=== PATIENT | female | born 1990 | race Caucasian/White ===

== ENCOUNTER 2024-06-05 07:58 | Outpatient (CLI) | payer OTHER, SELFPAY ==
--- OUTSIDE RECORDS SUMMARY | 2024-06-05 08:00 | XMS_ITS | Clinical Summary ---
Author Organization [facility] Address [place], [place] [address] Care Team Providers Care Camera Technician Name Role Phone Talya Wu MD Unavailable Lisa Self Primary Care Provider [phone] Allergies Active Allergy Reactions Criticality Noted Date Comments Amoxicillin Rash 04/06/2023 Xoiruwcxhghvhafs-Nrygsunid-R m Other - Describe In Comment Field hyper Medications Medication Sig Dispensed Refills Start Date End Date Status MULTIVITAMIN TAB take 1 tablet by oral route once daily with food 0 04/18/2007 Active Active Problems Problem Noted Date Diagnosed Date Fatty liver 05/13/2024 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 HPV as cause of cervical cancer discussed with patient. Patient voices understanding. Encounters Date Type Department Care Team Description 05/25/2024 Lab Requisition [facility] [phone] Annie Mendes MD 05/11/2024 9:00 AM CDT Ancillary Procedure [facility] [address] [place] [address] 05/10/2024 Travel 04/28/2024 9:50 AM CDT Office Visit [facility] [address] [place] [address] Lisa Self PA Physical (Annual exam with pap-thinks last exam was in 2016); Fatigue (Had severe 'drop off' with fatigue for the last few weeks and struggling to stay awake during the day) 04/28/2024 Travel from Last 3 Months Immunizations Name Administration Dates Next Due COVID-19 vaccine (Deondre-J& J) PF, MDV 01/27/2021 DTaP 03/25/1996, 2,1991,07/13,1991 HIB HbOC (HibTITER) 05/12/1992, 1,1991,05/12 Hepatitis A (Adult) 09/18/2012,11/23/20102010 Hepatitis B (Peds) 11/19/2002,09/22/1998, 998 Inactivated Polio Vaccine 03/25/1996,,1991,05/12 Influenza, IIV3 (Age >=3 years) 09/18/2012 MMR 06/15/1998,06/08/1992 Meningococcal Vaccine (Menactra) 06/03/2009 Td (Age >=7 Years) 02/24/2004 Tdap 04/28/2024,06/03/2009 Varicella Vaccine 09/18/2012,11/23/2010 Family History Medical History Relation Name Comments Kidney cancer Father Skin cancer Father rare skin cance r Diabetes Mother adult onset Relation Name Status Comments Father Mother Social History Tobacco Use Types Packs/Day Years Used Date Smoking Tobacco: Never Passive Smoke Exposure: Past Smokeless Tobacco: Never Tobacco Cessation:Counseling Given: Not Answered Alcohol Use Standard Drinks/Week Comments Yes 1 (1 standard drink = 0.6 oz pur e alcohol) PHQ-2 Answer Date Recorded PHQ-2 TOTAL SCORE 2 04/28/2024 Social Connections Answer Date Recorded Frequency of Communication with Friends and Fami ly 0 04/28/2024 Financial Resource Strain Answer Date R ecorded Difficulty of Paying Living Expenses 3 04/28/2024 Difficulty of Paying Living Expenses Not on file 04/28/2024 Food Insecurity Answer Date Recorded Worried About Running Out of Food in the Last Ye ar 1 04/28/2024 Transportation Needs Answer Date Record ed Lack of Transportation (Medical) 1 04/28/2024 Housing Stability Answer Date Recorded Unable to Pay for Housing in the Last Year 1 04/28/2024 Sex and Gender Information Value Date Recorded Sex Assigned at Not on file Gender Identity Not on file Sexual Orientation Not on file Obstetrics History Para Term AB IAB SAB Ectopic Multiple Livin g Live Births 1 1 Date Outcome GA Total Labor Labor/2nd/3rd Weight Sex Type Anes PTL Ximena A1 A5 Name Clin AB Last Filed Vital Signs Vital Sign Reading Time Taken Comments Blood Pressure 115/75 04/28/2024 9:54 AM CDT Pulse 76 04/28/2024 9:54 AM CDT Temperature 37 ??C (98.6 ??F) 04/06/2023 3:42 PM CDT Respiratory Rate 18 04/06/2023 3:42 PM CDT Oxygen Saturation 98% 04/28/2024 9:54 AM CDT Inhaled Oxygen Concentration - - Weight 89.8 kg (198 lb) 04/28/2024 9:54 AM CDT Height 163.4 cm (5' 4.33) 04/28/2024 9:54 AM CD T Body Mass Index 33.64 04/28/2024 9:54 AM CDT Plan of Treatment Health Maintenance Due Date Last Done Comments COVID-19 vaccine series ( season) 2023 12/18/2022, 09/14/2021, 01/27/2021 Influenza for age 9-49 07/12/2024 09/18/2012 BMI (ht and wt on same day) for age 18+ 04/28/2025 04/28/2024 Depression screening for age 12+ 04/28/2025 04/28/2024 Pap test for age 21-65 05/25/2027 , 05/25/2024, 09/18/2012 Tetanus booster 04/28/2034 04/28/2024, 06/03/2009, 02/24/2004 HIV for age 15-65 Completed 04/28/2024 Hepatitis C screening for ag e 18-79 Completed 04/28/2024 Tdap Completed 04/28/2024, 06/03/2009 Pneumococcal series for age 6-64 Aged Out No longer eligible b ased on patient's age to complete this topic Procedures Procedure Name Priority Date/Time Associated Diagnosis Comments LAB TRACKING EVENT Routine 05/25/2024 9: 00 AM CDT ROTARY ADJUSTER THIN PREP PAP SCREEN IMAGED Routine 05/25/2024 9:00 AM CDT HPV THIN PREP Routine 05/25/2024 9:00 AM CDT US ABDOMEN LIMITED RUQ Routine 05/11/2024 9:07 AM CDT Abdominal pain, RUQ (right upper quadrant) URINALYSIS MICROSCOPIC Routine 04/28/2024 10:41 AM CDT Dysuria UA W/ SEDIMENT EXAM REFLEXED PER CRITERIA Routine 04/28/2024 10:41 AM CDT Dysuria CBC WITH AUTO DIFFERENTIAL Routine 04/28/2024 10:39 AM CDT Chronic fatigue ANTI HCV Routine 04/28/2024 10:39 AM CDT Need for hepatitis C screening test ANTI HIV 1/2 Routine 04/28/2024 10:39 AM CDT Screening for HIV (human immunodeficiency virus) VITAMIN D 25 (DEFICIENCY) Routine 04/28/2024 10:39 AM CDT Vitamin D deficiency CBC WITH AUTO DIFFERENTIAL Routine 04/28/2024 10:39 AM CDT Chronic fatigue COMP METABOLIC PANEL Routine 04/28/2024 10:39 AM CDT Chronic fatigue LIPID PANEL W REFLEX MEASURED LDL Routine 04/28/2024 10:39 AM CDT Screening cholesterol level TSH Routine 04/28/2024 10:39 AM CDT Chronic fatigue from Last 3 Months Results * LAB TRACKING EVENT (05/25/2024 9:00 AM CDT) Other (Other) Client Collect / Unknown 05/25/2024 9:00 AM CDT 05/25/2024 3:37 PM CDT Annie Mendes MD LAB BILL O NLY [facility] LABORATORY [address] [place] [address], * ROTARY ADJUSTER THIN PREP PAP SCREEN IMAGED (05/25/2024 9:00 AM CDT) Case Report Gynecologic Cytology Report ? Case: [id number] ? Authorizing Provider: ??Annie Mendes ?Collected: ? 05/25/2024 0900 ? MD Felecia ? Ordering Location: ? [facility] ?Received: ?05/28/2024 0806 ? First Screen: ?Joshua Messer ? Rescreen: ?Celia Subramanian ? Specimen: ?ROTARY ADJUSTER ThinPrep Vial Screening, Cervical ? 06/03/2024 11:31 AM CDT [facility] [employer] [facility] ENTR[facility] INTERPRETATION/ RESULT NEGATIVE FOR INTRAEPITHELIAL LESION OR MALIGNANCY (NIL) (none) 06/03/2024 11:31 AM CDT [facility] ENTRAL LABORATORY IMEN ADEQUACY Satisfactory for evaluation No endocervical component seen 06/03/2024 11:31 AM CDT [facility] [employer] LABORATORY ENTRAL LABORATORY HPV REQUEST HPV and PAP 06/03/2024 11:31 AM CDT [facility] Date of LMP 05/08/2024 06/03/2024 11:31 AM CDT [facility] Last Pap Result 11:31 AM CDT [facility] Comment:Unknown Abnormal Pap or [place] Bx in last 5 years No 06/03/2024 11:31 AM CDT [facility] LABORATORY Menstrual Status Regular Periods 06/03/2024 11:31 AM CDT [facility] ENTRAL LABORATORY [place] Bx Done Today No 06/03/2024 11:31 AM CDT [facility] Additional Information Didelphys uterus - only R cervix found pap performentd 06/03/2024 11:31 AM CDT [facility] EN[facility] LABORATORY Comment: Interpreted at [facility] Central Laboratory - [address] [address] Automated Review Successful 06/03/2024 11:31 AM CDT [facility] ENTROK LABORATORY Comment:Specimen processed s uccessfully by automated retail seasonal specialist device, ThinPrep Imaging System, [employer] ANCILLARY TESTING ROTARY ADJUSTER HPV Ordered, Please see separate report 06/03/2024 11:[address] [facility] Note The pap test is a screening technique, not a diagnostic procedure. It is used primarily to screen for squamous cancers and precursor lesions. Published studies have shown that it is subject to both false negative and false positive results. The pap test should not be used as the sole means to diagnose or exclude pre-malignant and malignant lesions. 06/03/2024 11:31 AM CDT [facility] LAB[facility]AT[facility] Other (Cervical) 05/25/2024 9:00 AM CDT 05/28/2024 8:06 AM CDT Annie Mendes MD PATHOLOGY/ CYTOLOGY Performing Organization Address [facility] Co de Phone Number [facility] [address] * HPV HIGH RISK (05/25/2024 9:00 AM CDT) TYPE 16 Negative Negative 06/01/2024 2:27 PM CDT [facility] TRAL LABORATORY TYPE 18 Negative Negative 06/01/2024 2:27 PM CDT [facility] TR[facility] LABORATORY OTHER HIGH RISK TYPES Negative Negative 06/01/2024 2:27 PM CDT [facility] Other (Cervical) 05/25/2024 9:00 AM CDT 05/28/2024 8:06 AM CDT Narrative [facility] - 06/01/2024 2:27 PM CDT HPV types 16, 18, 31, 33, 35, 39, 45, 51, 52, 56, 58, 59, 66 and 68 DNA were undetectable or below the pre-set threshold. Methodology: Mariela Mercedez 4800 HPV Test Annie Mendes MD MICROBIOLO GY [facility] LABORATORY [address] [place] [address], [place] * US ABDOMEN LIMITED RUQ (05/11/2024 9:07 AM CDT) Anatomical Region Laterality Modality Abdomen, LIVER Ultrasound 05/12/2024 6:47 AM CDT Impressions 05/12/2024 6:47 AM CDT Mild diffuse hepatic steatosis. The remainder of the examination is unremarkable. Dictated by Tobin Khan MD @ 05/12/2024 6:47:11 AM (Electronically Signed) Narrative 05/12/2024 6:47 AM CDT For Patients: ??As a result of the Cures Act, medical imaging exams and procedure reports are released immediately into your electronic medical record. ??You may view this report before your referring provider. ??If you have questions, please contact your health care provider. INDICATION: Right upper quadrant abdominal pain COMPARISON: none TECHNIQUE: Real time khoury scale imaging and color Doppler analysis was performed of the right upper quadrant. FINDINGS: The patient`s liver is of normal size and has slightly increased echogenicity. There is a normal appearance of the hepatic IVC and proximal abdominal aorta. There is no evidence of ascites. The gallbladder is of normal size and there is no evidence of intraluminal stones or sludge. ??The gallbladder wall measures 2 mm in thickness. ??The common bile duct is of normal size and measures 3 mm in diameter at the level of the eder hepatis. ??The pancreas appears normal. ??There is no evidence of a stone or hydronephrosis within the right kidney. ??The right kidney measures 10.3 cm in length. ?? Procedure Note Tobin Khan MD - 05/12/2024 For Patients: As a result of the Cures Act, medical imagingexams and procedure reports are released immediately into your electronicmedical record. You may view this report before your referring provider.If you have questions, please contact your health care provider. INDICATION: Right upper quadrant abdominal pain COMPARISON: none TECHNIQUE: Real time khoury scale imaging and color Doppler analysis was performed ofthe right upper quadrant. FINDINGS: The patient`s liver is of normal size and has slightly increasedechogenicity. There is a normal appearance of the hepatic IVC and proximalabdominal aorta. There is no evidence of ascites. The gallbladder is ofnormal size and there is no evidence of intraluminal stones or sludge.The gallbladder wall measures 2 mm in thickness. The common bile duct isof normal size and measures 3 mm in diameter at the level of the portahepatis. The pancreas appears normal. There is no evidence of a stone orhydronephrosis within the right kidney. The right kidney measures 10.3 cmin length. IMPRESSION: Mild diffuse hepatic steatosis. The remainder of the examination isunremarkable. Dictated by Tobin Khan MD @ 05/12/2024 6:47:11 AM (Electronically Signed) Lisa LINK [place] * URINALYSIS MICROSCOPIC (04/28/2024 10:41 AM CDT) RBC 0-2 0-2, None Seen /HPF 04/28/2024 10:56 AM CDT [facility] WBC 0-2 0-2, 3-5, None Seen /HPF 04/28/2024 10:56 AM CDT [facility] BACTERIA Few None Seen, Rare, Few Bacteria/H PF 04/28/2024 10:56 AM CDT [facility] EPITHELIAL CELLS Few None Seen, Few Epi/HPF 04/28/2024 10:56 AM CDT [facility] Urine URINE SPECIMEN / Unknown Non-Blood / Unknown 04/28/2024 10:41 AM CDT 04/28/2024 10:41 AM CDT Lisa LINK URINE [facility] [address] [place] [address], [place] [phone] * (ABNORMAL) UA W/ SEDIMENT EXAM REFLEXED PER CRITERIA (04/28/2024 10:41 AM CDT) COLOR Yellow Yellow Color 04/28/2024 10:56 AM CDT [facility] CLARITY Clear Clear Clarity 04/28/2024 10:56 AM CDT [facility] SPECIFIC GRAVITY,URINE 1.015 1.010, 1.015, 1.020, 1.025 04/28/2024 10:56 AM CDT [facility] PH,URINE 7.0 6.0, 7.0, 8.0, 5.5, 6.5, 7.5, 8.5 04/28/2024 10:56 AM CDT [facility] UROBILINOGEN, QUALITATIVE Normal Normal EU/dl 04/28/2024 10:56 AM CDT [facility] PROTEIN, URINE Negative Negative mg/dL 04/28/2024 10:56 AM CDT [facility] GLUCOSE, URINE Negative Negative mg/dL 04/28/2024 10:56 AM CDT [facility] KETONES,URINE Negative Negative mg/dL 04/28/2024 10:56 AM CDT [facility] BILIRUBIN,URI NE Negative Negative 04/28/2024 10:56 AM CDT [facility] OCCULT BLOOD,URINE Trace(A) Negative 04/28/2024 10:56 AM CDT [facility] NITRITE Negative Negative 04/28/2024 10:56 AM CDT [facility] LEUKOCYTE ESTERASE Negative Negative 04/28/2024 10:56 AM CDT [facility] Urine URINE SPECIMEN / Unknown Non-Blood / Unknown 04/28/2024 10:41 AM CDT 04/28/2024 10:41 AM CDT Lisa LINK URINE Performing Organization Address City/State/[facility] Co de Phone Number [facility] [address] [place] [address], * CBC WITH AUTO DIFFERENTIAL (04/28/2024 10:39 AM CDT) WHITE BLOOD COUNT 8.5 4.5 - 11.0 thou/cu mm 04/28/2024 10:55 AM CDT [facility] RED BLOOD COUNT 4.47 4.00 - 5.20 mil/cu mm 04/28/2024 10:55 AM CDT [facility] HEMOGLOBIN 12.8 12.0 - 16.0 g/dL 04/28/2024 10:55 AM CDT [facility] HEMATOCRIT 38.6 33.0 - 51.0 % 04/28/2024 10:55 AM CDT [facility] MCV 86 80 - 100 fL 04/28/2024 10:55 AM CDT [facility] MCH 28.6 26.0 - 34.0 pg 04/28/2024 10:55 AM CDT [facility] MCHC 33.2 32.0 - 36.0 g/dL 04/28/2024 10:55 AM CDT [facility] RDW 12.3 11.5 - 15.5 % 04/28/2024 10:55 AM CDT [facility] PLATELET COUNT 308 140 - 440 thou/cu mm 04/28/2024 10:55 AM CDT [facility] MPV 8.3 6.5 - 11.0 fL 04/28/2024 10:55 AM CDT [facility] % NEUT 63.9 % 04/28/2024 10:55 AM CDT [facility] % LYMPH 26.4 % 04/28/2024 10:55 AM CDT [facility] % MONO 6.5 % 04/28/2024 10:55 AM CDT [facility] % EOS 2.6 % 04/28/2024 10:55 AM CDT [facility] % BASO 0.6 % 04/28/2024 10:55 AM CDT [facility] ABSOLUTE NEUTROPHILS 5.4 1.7 - 7.0 thou/cu mm 04/28/2024 10:55 AM CDT [facility] ABSOLUTE LYMPHOCYTES 2.3 0.9 - 2.9 thou/cu mm 04/28/2024 10:55 AM CDT [facility] ABSOLUTE MONOCYTES 0.6 <0.9 thou/cu mm 04/28/2024 10:55 AM CDT [facility] ABSOLUTE EOSINOPHILS 0.2 <0.5 thou/cu mm 04/28/2024 10:55 AM CDT [facility] ABSOLUTE BASOPHILS 0.1 <0.3 thou/cu mm 04/28/2024 10:55 AM CDT [facility] Blood BLOOD SPECIMEN / Unknown Venipuncture / Unknown 04/28/2024 10:39 AM CDT 04/28/2024 10:39 AM CDT Lisa LINK HEMATOLOGY [facility] [address] [place] [address], * (ABNORMAL) LIPID PANEL W REFLEX MEASURED LDL (04/28/2024 10:39 AM CDT) CHOLESTEROL,TOTAL 176 100 - 199 mg/dL 04/28/2024 7:00 PM CDT [facility] [employer] Comment: Cholesterol, Total Reference Ranges Desirable <200 mg/dL Borderline 200-239 mg/dL High >=240 mg/dL TRIGLYCERIDES 175(H) <150 mg/dL 04/28/2024 7:00 PM CDT [facility] HDL CHOLESTEROL 33(L) >40 mg/dL 7:00 PM CDT [facility] NON-HDL CHOLESTEROL 143 <145 mg/dl 04/28/2024 7:00 PM CDT [facility] CHOL/HDL RATIO 5.33(H) <4.50 04/28/2024 7:00 PM CDT [facility] [employer] LDL CHOLESTEROL 108 <=130 mg/dL 04/28/2024 7:00 PM CDT [facility] VLDL CHOLESTEROL 35(H) <=30 mg/dL 04/28/2024 7:00 PM CDT [facility] PROVIDER ORDERED STATUS RANDOM 04/28/2024 7:00 PM CDT [facility] Blood BLOOD SPECIMEN / Unknown Venipuncture / Unknown 04/28/2024 10:39 AM CDT 04/28/2024 10:39 AM CDT Lisa LINK CHEMISTRY Performing Organization Address [facility]/ZIP Co de Phone Number [facility] [address] [place] [address], * VITAMIN D 25 (DEFICIENCY) (04/28/2024 10:39 AM CDT) VITAMIN D TOTAL 29.9 20.0 - 80.0 ng/mL 04/28/2024 7:00 PM CDT [facility] Blood BLOOD SPECIMEN / Unknown Venipuncture / Unknown 04/28/2024 10:39 AM CDT 04/28/2024 10:39 AM CDT Narrative [facility] - 04/28/2024 7:00 PM CDT ? Vitamin D Status Deficiency: ? <20 ng/mL Insufficiency: ?20-29 ng/mL Sufficiency: ?30-80 ng/mL Possible Toxicity: ??>80 ng/mL Based on [place] of Medicine recommendations Biotin supplements may cause clinically significant interference for this test assay. ??If interference is suspected, it is strongly recommended that biotin is discontinued for at least one week prior to retesting. Lisa LINK SEND OUTS Performing Organization Address [facility] Co de Phone Number [facility] [address] [place] [address], * TSH (04/28/2024 10:39 AM CDT) TSH 1.84 0.27 - 4.20 uIU/mL 04/28/2024 7:00 PM CDT [facility] Blood BLOOD SPECIMEN / Unknown Venipuncture / Unknown 04/28/2024 10:39 AM CDT 04/28/2024 10:39 AM CDT Narrative [facility] - 04/28/2024 7:00 PM CDT In Adults, TSH values between 5.00 and 10.00 uIU/ml do not necessarily indicate the presence of Hypothyroidism. Correlation with clinical findings such as presence of goiter and/or Thyroperoxidase (TPO) Antibody may be helpful. For more information please refer to JESSICA 2004; 291: 228-238. Lisa LINK CHEMISTRY Performing Organization Address [facility] Co de Phone Number [facility] [address] [place] [id number], [place] * ANTI HCV (04/28/2024 10:39 AM CDT) HEPATITIS C ANTIBODY Non-Reacti ve Non-React ronald 04/28/2024 6:09 PM CDT [facility] Comment:Please note, per www .CDC.gov: If a patient is known to be at high risk of HCV infection, or is symptomatic, and the physician's suspicion of HCV infection is high, HCV RNA testing is often employed and is of diagnostic value, even after an initial negative anti-HCV test result. Blood BLOOD SPECIMEN / Unknown Venipuncture / Unknown 04/28/2024 10:39 AM CDT 04/28/2024 10:39 AM CDT Lisa LINK SEND OUTS Performing Organization Address [facility] de Phone Number [facility] [address] [place] [address], [place] * ANTI HIV 1/2 (04/28/2024 10:39 AM CDT) HIV-1/HIV-2 SCREEN Non-Reacti ve Non-Reacti ve 04/28/2024 7:34 PM CDT [facility] Comment:HIV-1 p24 and HIV-1/ HIV-2 Ab Not Detected. Blood BLOOD SPECIMEN / Unknown Venipuncture / Unknown 04/28/2024 10:39 AM CDT 04/28/2024 10:39 AM CDT Lisa LINK SEND OUTS Performing Organization Address [facility] Co de Phone Number [facility] [address] [place] [address], [place] * (ABNORMAL) COMP METABOLIC PANEL (04/28/2024 10:39 AM [facility] SODIUM 138 136 - 145 mmol/L 04/28/2024 7:00 PM [facility] POTASSIUM 4.7 3.5 - 5.1 mmol/L 04/28/2024 7:00 PM [facility] CHLORIDE 105 98 - 107 mmol/L 04/28/2024 7:00 PM [facility] CO2,TOTAL 24 22 - 29 mmol/L 04/28/2024 7:00 PM [facility] ANION GAP 9 5 - 18 04/28/2024 7:00 PM [facility] GLUCOSE 100(H) 70 - 99 mg/dL 04/28/2024 7:00 PM [facility] CALCIUM 9.7 8.6 - 10.0 mg/dL 04/28/2024 7:00 PM [facility] BUN 7 6 - 20 mg/dL 04/28/2024 7:00 PM [facility] CREATININE 0.79 0.50 - 0.90 mg/dL 04/28/2024 7:00 PM [facility] BUN/CREAT RATIO 9(L) 10 - 20 7:00 PM [facility] eGFR >90 >90 mL/min/1.7 3m2 04/28/2024 7:00 PM [facility] Comment:As of 2022, eG FR is calculated by the CKD-EPI creatinine equation without race adjustment. ??eGFR can be influenced by muscle mass, exercise, and diet. ??The reported eGFR is an estimation only and is only applicable if the renal function is stable. ALBUMIN 4.6 4.0 - 4.9 g/dL 04/28/2024 7:00 PM [facility] PROTEIN,TOTAL 7.6 6.0 - 8.0 g/dL 04/28/2024 7:00 PM [facility] BILIRUBIN,TOTAL 0.5 0.0 - 1.2 mg/dL 04/28/2024 7:00 PM CDT [facility] ALK PHOSPHATASE 57 35 - 104 IU/L 04/28/2024 7:00 PM CDT [facility] ALT (SGPT) 22 10 - 35 IU/L 04/28/2024 7:00 PM CDT [facility] AST (SGOT) 19 10 - 35 IU/L 04/28/2024 7:00 PM CDT [facility] Blood BLOOD SPECIMEN / Unknown Venipuncture / Unknown 04/28/2024 10:39 AM CDT 04/28/2024 10:39 AM CDT Lisa LINK CHEMISTRY [facility] [address] [place] [id number], from Last 3 Months Care Teams Camera Technician Relationship Specialty Start Date End Date Lisa Self PA [address] [facility] [id number] PCP - General Physician Parts Consultant 04/28/24 Talya Wu MD [address] [id number] (work) 04/06/23
--- OUTSIDE RECORDS SUMMARY | 2024-06-05 08:00 | XMS_ITS | Continuity of Care Document ---
Author Name [facility] Organization [facility] Care Team Providers Care Insurance Agent Name Role Phone [facility] Unavailable Unavailable Problems Combined list of problems from Department of Defense and Veterans Affairs facilities. It does not include entries that were removed or entered in error. Problem Status Onset Date Problem Type Date of Resolution Comments Source Diagnosis: ICD-10-CM Z65.9 Problem related to unspecified psychosocial circumstances Active Diagnosis [facility] Diagnosis: ICD-10-CM Z71.89 Other specified counseling Active Diagnosis [facility] Immunizations Combined list of available immunizations from the Department of Defense and [facility] facilities. Immunization Series Date Given Administered By Site Reaction Lot Number CVX Code Drug Cardiac Specialist Status Comments Source COVID-19 (Viraliti), VECTOR-NR, [id number], PF, 0.5 ML 1 2020 212 complet ed JSN; [id number]; [facility] Encounters Combined list of: 1) Encounters from Department of Veterans Affairs facilities going back up to thelast 18 months. 2) Encounters from the Department of Defense facilities going back up to 280 months. Location Location Details Encounter Type Encounter Number Reason For Visit Attending Provider ADM Date DC Date Status Disposition Source [facility] PSYCH DIAGNOSTIC EVALUATION [id number] Diagnos is: ICD-10- CM Z65.9 Problem related to unspeci fied psychos ocial circums tances< br/> DO VANE NNA L 12/11 [facility] [place] Outpatient Encounter [id number] 12/20 [facility] [place] FAMILY PSYTX W/O PT 50 MIN [id number] Diagnos is: ICD-10- CM Z71.89 Other specifi ed residential treatment counselor ing<br/ > ANDRIA GREY 01/16 [facility] FAMILY PSYTX W/O PT 50 MIN [id number] Diagnos is: ICD-10- CM Z71.89 Other specifi ed residential treatment counselor ing<br/ > QUE,ABB Y 02/06 [place] [facility] [place] [facility] Outpatient Encounter [id number] 02/07 [place] [facility] [facility] [place] [facility] FAMILY PSYTX W/O PT 50 MIN [id number] Diagnos is: ICD-10- CM Z71.89 Other specifi ed residential treatment counselor ing<br/ > QUE,ABB Y 03/06 [place] [facility] [place] [facility] FAMILY PSYTX W/O PT 50 MIN [id number] Diagnos is: ICD-10- CM Z71.89 Other specifi ed residential treatment counselor ing<br/ > QUE,ABB Y 03/21 [facility] [place] [facility] FAMILY PSYTX W/O PT 50 MIN [id number] Diagnos is: ICD-10- CM Z71.89 Other specifi ed residential treatment counselor ing<br/ > QUE,ABB Y 04/04 [place] [facility] [place] [facility] Outpatient Encounter [id number] 04/11 [place] [facility] [place] [facility] FAMILY PSYTX W/O PT 50 MIN [id number] Diagnos is: ICD-10- CM Z71.89 Other specifi ed residential treatment counselor ing<br/ > QUE,ABB Y 04/25 [place] [facility] [place] [facility] FAMILY PSYTX W/O PT 50 MIN [id number] Diagnos is: ICD-10- CM Z71.89 Other specifi ed residential treatment counselor ing<br/ > QUE,ABB Y 05/08 [place] [facility] [place] [facility] FAMILY PSYTX W/O PT 50 MIN [id number] Diagnos is: ICD-10- CM Z71.89 Other specifi ed residential treatment counselor ing<br/ > QUE,ABB Y 06/05 [place] [facility] [place] [facility] FAMILY PSYTX W/O PT 50 MIN [id number] Diagnos is: ICD-10- CM Z71.89 Other specifi ed residential treatment counselor ing<br/ > QUE,ABB Y 06/20 [place] [facility] [place] [facility] FAMILY PSYTX W/O PT 50 MIN [id number] Diagnos is: ICD-10- CM Z71.89 Other specifi ed residential treatment counselor ing<br/ > QUE,ABB Y 07/04 [place] [facility] [place] [facility] FAMILY PSYTX W/O PT 50 MIN [id number] Diagnos is: ICD-10- CM Z71.89 Other specifi ed residential treatment counselor ing<br/ > QUE,ABB Y 08/08 [place] [facility] [place] [facility] Outpatient Encounter [id number] 08/09 [place] [facility] [place] [facility] FAMILY PSYTX W/O PT 50 MIN [id number] Diagnos is: ICD-10- CM Z71.89 Other specifi ed residential treatment counselor ing<br/ > QUE,ABB Y 09/05 [place] [facility] [place] [facility] FAMILY PSYTX W/O PT 50 MIN [id number] Diagnos is: ICD-10- CM Z71.89 Other specifi ed residential treatment counselor ing<br/ > QUE,ABB Y 09/19 [place] [facility] [facility] [place] [facility] Outpatient Encounter [id number] 09/23 [place] [facility] [place] [facility] FAMILY PSYTX W/O PT 50 MIN [id number] Diagnos is: ICD-10- CM Z71.89 Other specifi ed residential treatment counselor ing<br/ > QUE,ABB Y 10/17 [place] [facility] [place] [facility] FAMILY PSYTX W/O PT 50 MIN [id number] Diagnos is: ICD-10- CM Z71.89 Other specifi ed residential treatment counselor ing<br/ > ANDRIA GREY Y 10/31 [place] [facility] [place] [facility] Outpatient Encounter [id number] 11/01 [place] [facility] [facility] [place] [facility] Outpatient Encounter [id number] 11/20 [place] [facility] [place] [facility] FAMILY PSYTX W/O PT 50 MIN [id number] Diagnos is: ICD-10- CM Z71.89 Other specifi ed residential treatment counselor ing<br/ > ANDRIA GREY Y 12/13 [place] [facility] [place] [facility] Outpatient Encounter [id number] 12/25 [place] [facility] [facility] [place] [facility] FAMILY PSYTX W/O PT 50 MIN [id number] Diagnos is: ICD-10- CM Z71.89 Other specifi ed residential treatment counselor ing<br/ > ANDRIA GREY Y 01/01 [place] [facility] [place] [facility] Outpatient Encounter [id number] 01/03 [place] [facility] [place] [facility] FAMILY PSYTX W/O PT 50 MIN [id number] Diagnos is: ICD-10- CM Z71.89 Other specifi ed residential treatment counselor ing<br/ > ANDRIA GREY Y 01/30 [place] [facility] [facility] [place] [facility] FAMILY PSYTX W/O PT 50 MIN [id number] Diagnos is: ICD-10- CM Z71.89 Other specifi ed residential treatment counselor ing<br/ > ANDRIA GREY Y 02/18 [place] [facility] [place] [facility] FAMILY PSYTX W/O PT 50 MIN [id number] Diagnos is: ICD-10- CM Z71.89 Other specifi ed residential treatment counselor ing<br/ > ANDRIA GREY Y 03/11 [place] [facility] [place] [facility] FAMILY PSYTX W/O PT 50 MIN [id number] Diagnos is: ICD-10- CM Z71.89 Other specifi ed residential treatment counselor ing<br/ > QUE,ABB Y 04/01 [facility] [place] [facility] Outpatient Encounter [id number] 04/10 [facility] [place] [facility] FAMILY PSYTX W/O PT 50 MIN [id number] Diagnos is: ICD-10- CM Z71.89 Other specifi ed residential treatment counselor ing<br/ > QUE,ABB Y 04/22 [facility] [place] [facility] FAMILY PSYTX W/O PT 50 MIN [id number] Diagnos is: ICD-10- CM Z71.89 Other specifi ed residential treatment counselor ing<br/ > QUE,ABB Y 05/22 [facility] [place] [facility] HC PRO PHONE CALL 5-10 MIN [id number] Diagnos is: ICD-10- CM Z65.9 Problem related to unspeci fied psychos ocial circums tances< br/> DO VANE NNA L 05/22 [facility] Social History Combined list of available smoking, tobacco, and other social history from Department of Defense and Veterans Affairs facilities. Social History Type Response Date Comment Sourc e Tobacco smoking status [facility] NEVER USED 05/21/20 19 [facility] Plan of Care List of future care activities from Department of Veterans Affairs facilities. Additional future care activities may be listed in the Assessment and Plan section. Date/Time Care Activity Care Activity Detail Facili ty 06/12/2024 AMBULATORY - REHAB MEDICINE AMBULATORY - REHAB MEDICINE [facility]
--- NOTE | 2024-06-05 08:15 | CRLHL7_ITS ---
For Patients: As a result of the Century Cures Act, medical imaging exams and procedure reports are released immediately into your electronic medical record. You may view this report before your referring provider. If you have questions, please contact your health care provider. INDICATION: Bicornuate uterus. Assess renal anatomy. TECHNIQUE: Abdominal MRI with T1 in- and out of phase, T2, diffusion weighted, and progressively delayed post-contrast images. Intravenous gadolinium administered. FINDINGS: No fatty infiltration of the liver. No focal abnormalities identified in the visualized portions of the liver, spleen, pancreas, and adrenal glands. Normal appearance of the kidneys. No hydronephrosis. No adenopathy. IMPRESSION: 1. Normal appearance of the kidneys. No hydronephrosis. Dictated by Sundar Lemus MD @ 06/06/2024 11:31:21 AM (Electronically Signed)
--- NOTE | 2024-06-05 09:15 | CRLHL7_ITS ---
For Patients: As a result of the Century Cures Act, medical imaging exams and procedure reports are released immediately into your electronic medical record. You may view this report before your referring provider. If you have questions, please contact your health care provider. INDICATION: Bicornuate uterus. TECHNIQUE: Pelvic MRI with T1, T2, and postcontrast images. Intravenous gadolinium administered. FINDINGS: Two separate uterine horns and cervices with separation of the myometrium in the fundus of the uterus. Normal thickness of the endometrial stripe. A few small fibroids in the right uterine horn measuring up to 1.6 cm. Normal appearance of the ovaries which contain a few small follicles. No other pelvic masses. No adenopathy. No other bony or soft tissue abnormalities identified. Impression : 1. Bicornuate bicollis uterus. 2. A few small fibroids in the right uterine horn. Dictated by Sundar Lemus MD @ 06/06/2024 11:37:04 AM (Electronically Signed)
== END 2024-06-05 07:59 | disposition home or self-care (01) ==
LOC: MRI 07:59
PROVIDERS: PCP Physician Assistant; Visit Provider Obstetrics & Gynecology
DX: Q51.3 Bicornate uterus (principal); D25.9 Leiomyoma of uterus, unspecified
CPT/HCPCS: 72197; 74183; A9575